=== PATIENT | female | born 1975 | race Caucasian/White ===

== ENCOUNTER 2021-07-07 18:01 | Emergency (ER) | payer OTHER ==
[~2021-07-07] VITALS: Ht 154.9 cm; Wt 47.6 kg
[2021-07-07 19:12] LABS: URINE BILIRUBIN NEGATIVE (Negative); URINE BLOOD NEGATIVE (Negative); URINE CLARITY CLEAR; URINE COLOR YELLOW; URINE GLUCOSE-RANDOM NEGATIVE (Negative); URINE KETONES NEGATIVE (Negative); URINE LEUKOCYTES-REFLEX NEGATIVE (Negative); URINE NITRITE-REFLEX NEGATIVE (Negative); URINE PROTEIN NEGATIVE (Negative); URINE UROBILINOGEN 0.2 E.U./dl (0.2-1.0)
[2021-07-07 19:16] LABS: ABSOLUTE BASOPHILS 0.1 thou/uL (0.0-0.2); ABSOLUTE EOSINOPHILS 0.1 thou/uL (0.0-0.7); ABSOLUTE LYMPHOCYTES 1.9 thou/uL (0.8-5.3); ABSOLUTE MONOCYTES 0.5 thou/uL (0.0-1.2); ABSOLUTE NEUTROPHILS 7.5 thou/uL (1.6-8.1); BASOPHILS 0.9 %; EOSINOPHILS 0.7 %; HEMATOCRIT 38.7 % (37.0-47.0); HEMOGLOBIN 13.2 gm/dL (12.0-15.0); LYMPHOCYTES 18.7 %; MCH 32.9 pg (26.0-34.0); MCHC 34.1 g/dL (28.0-37.0); MCV 96.3 fL (80.0-100.0); MONOCYTES 4.7 %; MPV 6.9 fl. (7.2-11.1); NUCLEATED RBCS 0 /100WBC; PLATELET COUNT* 265 thou/uL (150-400); RBC 4.02 mil/uL (4.20-5.00); RDW-CV 12.5 % (10.5-14.5); WBC 10.1 thou/uL (4.0-11.0)
[2021-07-07 19:23] LABS: CALCIUM 8.8 mg/dL (8.5-10.1); CREATININE 0.8 mg/dL (0.6-1.3); POTASSIUM 3.8 mmol/L (3.5-5.1)
[2021-07-07 19:28] LABS: ALBUMIN 4.2 g/dL (3.4-5.0); TOTAL BILIRUBIN 0.3 mg/dL (<0.1-1.0); TOTAL PROTEIN 7.1 g/dL (6.4-8.2)
[2021-07-07 21:05] VITALS: BP 114/76
--- NOTE | 2021-07-08 14:19 | EKG ---
[place] [address] ELECTROCARDIOGRAM REPORT Name: DAMI TORRESCIRani Rodas Room: [facility]#: [id number] Admission: 07/07/21 Attend Phys: Discharge: 07/07/21 Date of : 75 Date of Service: 07/07/21 182 Report #: [id number] THIS REPORT FOR: //name// [facility] ED Test Date: 2021-07-07 Test Time: 18:28:40 Pat Name: MAXIM TORRES Department: Room: Gender: F Furniture Upholsterer: : 1975 Requested By: Sunshine Mcallister Order Number: [id number] MD: Moody Mckeon Measurements Intervals Morning Sun Rate: 75 P: 80 AK: 116 QRS: 88 QRSD: 87 T: 80 QT: 371 QTc: 415 Interpretive Statements Sinus rhythm Borderline short AK interval Right atrial enlargement Consider left ventricular hypertrophy Compared to ECG 04/15/2009 21:30:20 no change Electronically Signed On 07-08-2021 14:19:18 CDT by Moody Mckeon [email or web address] <ELECTRONICALLY SIGNED> By: Moody Mckeon MD, [facility] 07/08/21 1419 1828 1828 Moody Mckeon MD, [facility] /EPI
== END 2021-07-07 21:06 | disposition home or self-care (01) ==
LOC: M.ERS 18:01
PROVIDERS: Physician Assistant
DX: R55 Syncope and collapse (principal); Z90.710 Acquired absence of both cervix and uterus; Z90.49 Acquired absence of other specified parts of digestive tract